=== PATIENT | male | born 1995 | race Caucasian/White ===

== ENCOUNTER 2019-09-08 21:32 | Emergency (ER) | payer MEDICAID ==
[~2019-09-08] VITALS: Ht 170.2 cm; Wt 67.1 kg
[2019-09-08 21:34] VITALS: Ht 170.2 cm; Wt 67.1 kg
[2019-09-08 23:12] VITALS: BP 160/89
== END 2019-09-08 23:13 | disposition other institution (70) ==
LOC: ED 21:32
DX: S63.502A Unspecified sprain of left wrist, initial encounter (principal); S00.93XA Contusion of unspecified part of head, initial encounter; Y04.8XXA Assault by other bodily force, initial encounter; Y93.89 Activity, other specified; Y92.89 Other specified places as the place of occurrence of the external cause; Y99.8 Other external cause status

== ENCOUNTER 2019-09-08 21:50 | Emergency (ER) | payer OTHER | END 2019-09-08 23:13 | disposition other institution (70) | LOC: ED 21:50 | DX: Z02.89 Encounter for other administrative examinations (principal) ==